=== PATIENT | female | born 1970 | race Caucasian/White ===

== ENCOUNTER 2016-05-20 11:08 | Emergency (ER) | payer OTHER ==
[~2016-05-20] VITALS: Ht 160 cm; Wt 47.2 kg
[~2016-05-20 11:08] MED LIST: PRENATAL PO
[2016-05-20] MEDS ORDERED: PREDNISONE 10 M10 MG PO (11:14)
[2016-05-20] MEDS ORDERED: KEFLEX500 MG PO (11:14)
[2016-05-20] MEDS ORDERED: SULFAZINE500 MG PO (11:14)
[2016-05-20] MEDS ORDERED: MESALAMINE4 GM/60 M2 RE (11:15)
[2016-05-20 12:28] LABS: HEMATOCRIT 34.7 % (37.0-47.0); HEMOGLOBIN 11.5 gm/dL (12.0-15.0); MCH 29.7 pg (26.0-34.0); MCHC 33.2 % (28.0-37.0); MCV 89.4 fL (80.0-100.0); PLATELET COUNT 222 thou/uL (150-400); RBC 3.88 mil/uL (4.20-5.00); RDW 14.5 % (10.5-14.5); WBC 8.2 thou/uL (4.0-11.0)
[2016-05-20 12:31] LABS: MANUAL DIFF YES
[2016-05-20 13:03] LABS: ABSOLUTE NEUTROPHILS 7.1 thou/uL (1.4-8.2); CALCIUM 9.5 mg/dL (8.5-10.1); CREATININE 0.8 mg/dL (0.6-1.3); PLATELET ESTIMATE NORMAL; POTASSIUM 3.6 mmol/L (3.5-5.1); TOTAL CELL COUNT 100
[2016-05-20 13:08] LABS: ALBUMIN 3.2 g/dL (3.4-5.0); TOTAL BILIRUBIN 0.4 mg/dL (<0.1-1.0); TOTAL PROTEIN 7.5 g/dL (6.4-8.2)
[2016-05-20] MEDS ORDERED: BACTRIM DS TAB1 EACH PO (13:28)
== END 2016-05-20 13:47 | disposition home or self-care (01) ==
LOC: ER 11:08
PROVIDERS: Emergency Medicine
DX: L73.8 Other specified follicular disorders (principal); K51.90 Ulcerative colitis, unspecified, without complications; Z98.890 Other specified postprocedural states; F17.210 Nicotine dependence, cigarettes, uncomplicated; F10.99 Alcohol use, unspecified with unspecified alcohol-induced disorder